=== PATIENT | male | born 1985 | race Caucasian/White ===

== ENCOUNTER 2019-04-18 10:48 | Emergency (ER) | payer OTHER ==
[2019-04-18] MEDS ORDERED: Aspirin 81 MG Tab.Chew PO ONE (10:56)
[2019-04-18] MEDS ORDERED: Nitroglycerin 0.4 MG Tab.SL SL PRN (10:57)
[2019-04-18] MEDS ORDERED: Sodium Chloride 0.9% 1,000 ML IV ONE (10:58)
--- NOTE | 2019-04-18 11:25 | CR ---
Indication: Chest pain. Technique: A single AP portable view of the chest was obtained. Comparison: None Findings: The heart is borderline in size. The lungs are clear. No infiltrate, pleural effusion, or pneumothorax is identified. Impression: No acute cardiopulmonary process. Dictated by Marlys Maier MD @ Apr 18 2019 11:23AM Signed by Dr. Marlys Maier @ Apr 18 2019 11:24AM
[2019-04-18 11:27] LABS: CHLORIDE,CL 108 mmol/L (98-107); SODIUM,NA 144 mmol/L (136-148)
--- NOTE | 2019-04-18 11:42 | EDM.PDOC ---
ED HPI GENERAL MEDICAL PROBLEM - General Chief Complaint: Chest Pain Stated Complaint: CHEST PAIN Time Seen by Provider: 04/18/19 10:52 Source of Information: Reports: Patient History Limitations: Reports: No Limitations - History of Present Illness INITIAL COMMENTS - FREE TEXT/NARRATIVE: HISTORY AND PHYSICAL: History of present illness: Patient is a 34-year-old male presents to the ED today with concern of mid sternal chest pain since last night. Patient states he's had this chest pain prior on several episodes but has not been seen for them. Patient states the chest pain is worse if he takes a deep breath in. Patient states he does not have chest pain unless he takes a deep breath in. Patient states he just recently quit smoking and vaporizing and wonders if this has some component to his symptoms. While in the ED, patient denies any current chest pain. Patient states he has not taken anything for her symptoms. Patient denies any health history or any family history of coronary artery disease. Patient denies any other symptoms or concerns at this time. Patient denies fever, chills, shortness of breath, or cough. Denies headache, neck stiff ness, change in vision, syncope, or near syncope. Denies nausea, vomiting, abdominal pain, diarrhea, constipation, or dysuria. Has not noted any blood in urine or stool. Patient has been eating and drinking appropriately. Review of systems: As per history of present illness and below otherwise all systems reviewed and negative. Past medical history: As per history of present illness and as reviewed below otherwise noncontributory. Surgical history: As per history of present illness and as reviewed below otherwise noncontributory. Social history: See social history for further information Family history: As per history of present illness and as reviewed below otherwise noncontributory. Physical exam: General: Patient is alert, oriented, and in no acute distress. Patient sitting comfortably on exam table. HEENT: Atraumatic, normocephalic, pupils equal and reactive bilaterally, negative for conjunctival pallor or scleral icterus, mucous membranes moist, TMs normal bilaterally, throat clear, neck supple, nontender, trachea midline. No drooling or trismus noted. No meningeal signs. No hot potato voice noted. Lungs: Clear to auscultation, breath sounds equal bilaterally, chest nontender. Heart: S1S2, regular rate and rhythm without overt murmur Abdomen: Soft, nondistended, nontender. Negative for masses or hepatosplenomegaly. Negative for costovertebral tenderness. Pelvis: Stable nontender. Genitourinary: Deferred. Rectal: Deferred. Skin: Intact, warm, dry. No lesions or rashes noted. Extremities: Atraumatic, negative for cords or calf pain. Neurovascular unremarkable. Neuro: Awake, alert, oriented. Cranial nerves II through XII unremarkable. Cerebellum unremarkable. Motor and sensory unremarkable throughout. Exam nonfocal. Notes: Admission for observation was offered to patient but he declines at this time. All risk versus benefits discussed with patient and he expresses understanding. Voices understanding and is agreeable to plan of care. Denies any further questions or concerns at this time. Diagnostics: CBC, CMP, UA, EKG, troponin, chest x-ray, Therapeutics: Aspirin, saline Prescription: None Impression: Chest pain, unspecified Plan: 1. You can alternate ibuprofen and Tylenol as directed for pain and discomfort. 2. Follow-up with her primary care provider/cardiology as discussed. Return to the ED as needed and as discussed. Definitive disposition and diagnosis as appropriate pending reevaluation and review of above. Middle Chest Pain Score (Numeric/FACES): 5 - Related Data Allergies Allergy/AdvReac Type Severity Reaction Status Date / Time No Known Allergies Allergy Verified 07/14/18 17:32 Home Meds: Home Meds Sertraline [Zoloft] 100 mg PO DAILY 06/27/18 [History] clonazePAM [Klonopin] 0.5 mg PO DAILY 07/14/18 [History] Past Medical History HEENT History: Reports: Other (See Below) Other HEENT History: ruptured right ear drum Psychiatric History: Reports: Anxiety, Depression - Infectious Disease History Infectious Disease History: Reports: Chicken Pox - Past Surgical History HEENT Surgical History: Reports: None Social & Family History - Family History Family Medical History: Noncontributory - Tobacco Use Smoking Status *Q: Never Smoker Second Hand Smoke Exposure: No - Caffeine Use Caffeine Use: Reports: Coffee - Recreational Drug Use Recreational Drug Use: No ED ROS GENERAL - Review of Systems Review Of Systems: ROS reveals no pertinent complaints other than HPI. ED EXAM, GENERAL - Physical Exam Exam: See Below (see dictation) Course - Vital Signs Last Recorded V/S: Last Vital Signs Temp 35.9 C 04/18/19 10:53 Pulse 81 04/18/19 10:53 Resp 16 04/18/19 10:53 BP 133/73 04/18/19 10:53 Pulse Ox 94 L 04/18/19 10:53 - Orders/Labs/Meds Orders: Active Orders 24 hr Category Date Time Status EKG Documentation Completion [RC] STAT Care 04/18/19 10:52 Active UA RFX MERY AND CULT IF INDIC [URIN] Stat Lab 04/18/19 10:52 Ordered Nitroglycerin [Nitrostat] Med 04/18/19 10:57 Active 0.4 mg SL Q5M PRN Sodium Chloride 0.9% [Normal Saline] 1,000 ml Med 04/18/19 10:58 Active IV STAT Medication Orders Sodium Chloride (Normal Saline) 1,000 mls @ 999 mls/hr IV STAT ONE Stop: 04/18/19 11:58 Last Admin: 04/18/19 11:05 Dose: 999 mls/hr Nitroglycerin (Nitrostat) 0.4 mg SL Q5M PRN PRN Reason: Chest Pain Labs: Laboratory Tests 04/18/19 04/18/19 04/18/19 Range/Units 11:00 11:00 11:00 WBC 5.65 (4.0-11.0) K/uL RBC 4.99 (4.50-5.90) M/uL Hgb 15.1 (13.0-17.0) g/dL Hct 45.8 (38.0-50.0) % MCV 91.8 (80.0-98.0) fL MCH 30.3 (27.0-32.0) pg MCHC 33.0 (31.0-37.0) g/dL RDW Std Deviation 46.8 (28.0-62.0) fl RDW Coeff of Ralph 14 (11.0-15.0) % Plt Count 242 (150-400) K/uL MPV 9.60 (7.40-12.00) fL Neut % (Auto) 58.9 (48.0-80.0) % Lymph % (Auto) 30.1 (16.0-40.0) % [place] % (Auto) 7.3 (0.0-15.0) % Eos % (Auto) 3.2 (0.0-7.0) % Baso % (Auto) 0.5 (0.0-1.5) % Neut # (Auto) 3.3 (1.4-5.7) K/uL Lymph # (Auto) 1.7 (0.6-2.4) K/uL [place] # (Auto) 0.4 (0.0-0.8) K/uL Eos # (Auto) 0.2 (0.0-0.7) K/uL Baso # (Auto) 0.0 (0.0-0.1) K/uL Nucleated RBC % 0.0 /100WBC Nucleated RBCs # 0 K/uL INR 0.97 Sodium 144 (136-148) mmol/L Potassium 4.1 (3.5-5.1) mmol/L Chloride 108 H (98-107) mmol/L Carbon Dioxide 26.8 (21.0-32.0) mmol/L BUN 14 (7.0-18.0) mg/dL Creatinine 0.9 (0.8-1.3) mg/dL Est Cr Clr Drug Dosing 110.83 mL/min Estimated GFR (MDRD) > 60.0 ml/min Glucose 117 H (74-106) mg/dL Calcium 9.0 (8.5-10.1) mg/dL Total Bilirubin 0.3 (0.2-1.0) mg/dL AST 9 L (15-37) IU/L ALT 24 (14-63) IU/L Alkaline Phosphatase 98 (46-116) U/L Troponin I < 0.050 (0.000-0.056) ng/mL Total Protein 6.7 (6.4-8.2) g/dL Albumin 3.6 (3.4-5.0) g/dL Globulin 3.1 (2.6-4.0) g/dL Albumin/Globulin Ratio 1.2 (0.9-1.6) Lipase 97 (73-393) U/L Meds: Medications Generic Name Dose Route Start Last Admin Trade Name Freq PRN Reason Stop Dose Admin Sodium Chloride 1,000 mls @ 999 mls/hr 04/18/19 10:58 04/18/19 11:05 Normal Saline IV 04/18/19 11:58 999 mls/hr STAT ONE Administration Nitroglycerin 0.4 mg 04/18/19 10:57 Nitrostat SL Q5M PRN Chest Pain Discontinued Medications Generic Name Dose Route Start Last Admin Trade Name Freq PRN Reason Stop Dose Admin Aspirin 324 mg 04/18/19 10:56 04/18/19 11:05 Aspirin PO 04/18/19 10:57 324 mg ONETIME ONE Administration Departure - Departure Time of Disposition: 11:42 Disposition: Home, Self-Care 01 Clinical Impression: Chest pain Qualifiers: Chest pain type: chest pain on breathing Qualified Code(s): R07.1 - Chest pain on breathing - Discharge Information Instructions: Nonspecific Chest Pain, [id number] Referrals: PCP,Unknown [Primary Care Provider] - Forms: ED Department Discharge Additional Instructions: The following information is given to patients seen in the emergency department who are being discharged to home. This information is to outline your options for follow-up care. We provide all patients seen in our emergency department with a follow-up referral. The need for follow-up, as well as the timing and circumstances, are variable depending upon the specifics of your emergency department visit. If you don't have a primary care physician on staff, we will provide you with a referral. We always advise you to contact your personal physician following an emergency department visit to inform them of the circumstance of the visit and for follow-up with them and/or the need for any referrals to a consulting specialist. The emergency department will also refer you to a specialist when appropriate. This referral assures that you have the opportunity for follow-up care with a specialist. All of these measure are taken in an effort to provide you with optimal care, which includes your follow-up. Under all circumstances we always encourage you to contact your private physician who remains a resource for coordinating your care. When calling for follow-up care, please make the office aware that this follow-up is from your recent emergency room visit. If for any reason you are refused follow-up, please contact the [facility] Emergency Department at and asked to speak to the emergency department charge nurse. [facility] Primary Care / Cardiology [address] [place] [id number] [facility] [address] [place] [address] 1. You can alternate ibuprofen and Tylenol as directed for pain and discomfort. 2. Follow-up with her primary care provider/cardiology as discussed. Return to the ED as needed and as discussed. - My Orders Last 24 Hours: My Active Orders 04/18/19 10:52 EKG Documentation Completion [RC] STAT UA RFX MERY AND CULT IF INDIC [URIN] Stat 04/18/19 10:57 Nitroglycerin [Nitrostat] 0.4 mg SL Q5M PRN 04/18/19 10:58 Sodium Chloride 0.9% [Normal Saline] 1,000 ml IV STAT - Assessment/Plan Last 24 Hours: My Active Orders 04/18/19 10:52 EKG Documentation Completion [RC] STAT UA RFX MERY AND CULT IF INDIC [URIN] Stat 04/18/19 10:57 Nitroglycerin [Nitrostat] 0.4 mg SL Q5M PRN 04/18/19 10:58 Sodium Chloride 0.9% [Normal Saline] 1,000 ml IV STAT
== END 2019-04-18 11:53 | disposition home or self-care (01) ==
LOC: MW.ED 10:48
DX: R07.1 Chest pain on breathing (principal); F41.9 Anxiety disorder, unspecified; F32.9 Major depressive disorder, single episode, unspecified; Z79.899 Other long term (current) drug therapy
CPT/HCPCS: 36415; 71045; 80053; 83690; 84484; 85025; 85610; 93005; 96360; 99285; A9270; J7040; 99284

== ENCOUNTER 2019-07-09 07:27 | Emergency (ER) | payer OTHER ==
[2019-07-09] MEDS ORDERED: Ibuprofen 400 MG Tab PO ONE (07:39)
--- NOTE | 2019-07-09 07:42 | EDM.PDOC ---
ED HPI GENERAL MEDICAL PROBLEM - General Chief Complaint: ENT Problem Stated Complaint: SORE THROAT Time Seen by Provider: 07/09/19 07:39 Source of Information: Reports: Patient History Limitations: Reports: No Limitations - History of Present Illness INITIAL COMMENTS - FREE TEXT/NARRATIVE: pt. c/o sore throat, post-nasal drip and non-productive cough since last night. denies fevers, chills, body aches, diarrhea ,constipation, sick contacts or other symptoms. Has not used any OTC meds. throat Pain Score (Numeric/FACES): 6 - Related Data Allergies Allergy/AdvReac Type Severity Reaction Status Date / Time No Known Allergies Allergy Verified 07/14/18 17:32 Home Meds: Home Meds Sertraline [Zoloft] 100 mg PO DAILY 06/27/18 [History] clonazePAM [Klonopin] 0.5 mg PO DAILY 07/14/18 [History] Amoxicillin 875 mg PO BID 7 Days #14 tablet 07/09/19 [Rx] Past Medical History - Past Health History Medical/Surgical History: Denies Medical/Surgical History HEENT History: Reports: Other (See Below) Other HEENT History: ruptured right ear drum Psychiatric History: Reports: Anxiety, Depression - Infectious Disease History Infectious Disease History: Reports: Chicken Pox - Past Surgical History HEENT Surgical History: Reports: None Social & Family History - Family History Family Medical History: Noncontributory - Tobacco Use Smoking Status *Q: Former Smoker Used Tobacco, but Quit: Yes Month/Year Tobacco Last Used: 03/12 - Caffeine Use Caffeine Use: Reports: Coffee - Recreational Drug Use Recreational Drug Use: No ED ROS ENT - Review of Systems Review Of Systems: See Below Constitutional: Denies: Fever, Chills HEENT: Reports: Throat Pain. Denies: Sinus Problem, Throat Swelling Respiratory: Reports: Cough. Denies: Shortness of Breath, Wheezing Cardiovascular: Reports: No Symptoms GI/Abdominal: Reports: No Symptoms. Denies: Constipation, Diarrhea Musculoskeletal: Reports: Back Pain Skin: Reports: No Symptoms. Denies: Rash Neurological: Denies: Headache ED EXAM, ENT - Physical Exam Exam: See Below Exam Limited By: No Limitations General Appearance: Alert, No Apparent Distress Ears: Normal External Exam, Normal TMs Mouth/Throat: Normal Inspection, Normal Oropharynx Head: Atraumatic, Normocephalic Neck: Supple, Non-Tender Respiratory/Chest: No Respiratory Distress, Lungs Clear, Normal Breath Sounds Cardiovascular: Regular Rate, Rhythm, No Edema GI/Abdominal: Soft, Non-Tender Neurological: Alert Psychiatric: Normal Affect, Normal Mood Skin: Warm, Dry Lymphatic: No Adenopathy Course - Vital Signs Text/Narrative:: Ibuprofen 400 + strep swab completed Last Recorded V/S: Last Vital Signs Temp 97.3 F 07/09/19 07:30 Pulse 67 07/09/19 07:30 Resp 16 07/09/19 07:30 BP 116/7 L 07/09/19 07:30 Pulse Ox 96 07/09/19 07:30 - Orders/Labs/Meds Orders: Active Orders 24 hr Category Date Time Status STREP SCRN A RAPID W CULT CONF [RM] Stat Lab 07/09/19 07:45 Received Meds: Medications Discontinued Medications Generic Name Dose Route Start Last Admin Trade Name [place] PRN Reason Stop Dose Admin Ibuprofen 400 mg 07/09/19 07:39 07/09/19 07:53 Motrin PO 07/09/19 07:40 400 mg ONETIME ONE Administration Departure - Departure Time of Disposition: 08:04 Disposition: Home, Self-Care 01 Condition: Good Clinical Impression: Acute pharyngitis - Discharge Information Prescriptions: Amoxicillin 875 mg PO BID 7 Days #14 tablet Instructions: Sore Throat, [id number] Referrals: PCP,None [Primary Care Provider] - Forms: ED Department Discharge Care Plan Goals: Patient advised to use appropriate amounts of Tylenol and/or Ibuprofemn for sore throat relief. Advised to follow up with PCP in 1-2 weeks. Advised to notify provide if symptoms worsen or if fever, rash develops. Advised to drink plenty of fluids. - My Orders Last 24 Hours: My Active Orders 07/09/19 07:45 STREP SCRN A RAPID W CULT CONF [RM] Stat - Assessment/Plan Last 24 Hours: My Active Orders 07/09/19 07:45 STREP SCRN A RAPID W CULT CONF [RM] Stat
== END 2019-07-09 08:10 | disposition home or self-care (01) ==
LOC: MW.ED 07:27
DX: J02.9 Acute pharyngitis, unspecified (principal); F41.9 Anxiety disorder, unspecified; F32.9 Major depressive disorder, single episode, unspecified; Z79.899 Other long term (current) drug therapy; Z87.891 Personal history of nicotine dependence
CPT/HCPCS: 87081; 87880; 99283; A9270